=== PATIENT | female | born 1950 | race Caucasian/White ===

== ENCOUNTER → 2019-01-03 | Outpatient (CLI) | payer OTHER | LOC: M.RAD 14:00 → EDBD 14:17 | DX: Z12.31 Encounter for screening mammogram for malignant neoplasm of breast (principal) ==

== ENCOUNTER → 2019-01-12 | Outpatient (CLI) | payer OTHER | LOC: M.ULTRA 12:56 | DX: N63.11 Unspecified lump in the right breast, upper outer quadrant (principal); R92.8 Other abnormal and inconclusive findings on diagnostic imaging of breast ==

== ENCOUNTER 2019-06-23 23:09 | Emergency (ER) | payer OTHER ==
[~2019-06-23] VITALS: Ht 160 cm; Wt 57.6 kg
[2019-06-23] MEDS ORDERED: TRAMADOL 50 MG50 MG PO (23:54)
[2019-06-23] MEDS ORDERED: IBUPROFEN200 MG PO (23:54)
[2019-06-24 00:16] VITALS: BP 145/62
== END 2019-06-24 00:17 | disposition home or self-care (01) ==
LOC: M.ERS 23:09
DX: S46.812A Strain of other muscles, fascia and tendons at shoulder and upper arm level, left arm, initial encounter (principal); Z88.6 Allergy status to analgesic agent; Z88.5 Allergy status to narcotic agent; X58.XXXA Exposure to other specified factors, initial encounter; Y93.89 Activity, other specified; Y92.89 Other specified places as the place of occurrence of the external cause; Y99.8 Other external cause status